=== PATIENT | male | born 1935 | race Caucasian/White ===

== ENCOUNTER 2018-02-07 00:24 | Inpatient (IN) | payer MEDICARE, BC ==
[~2018-02-07] VITALS: Ht 168.9 cm; Wt 73.0 kg
[2018-02-07] VITALS (18 sets, daily range): BP systolic 133–174; BP diastolic 61–126; PULSE 53–78; RESP 16–22; TEMP 97.1–98.2; O2SAT 95–99
[2018-02-07] MEDS ORDERED: VENTAER INH (00:34)
[2018-02-07] MEDS ORDERED: ASPI81TA81 (00:34)
[2018-02-07] MEDS ORDERED: METF500T PO (00:37)
[2018-02-07] MEDS ORDERED: ROSU10 PO (00:37)
[2018-02-07] MEDS ORDERED: FLUT1SPR5 (00:37)
[2018-02-07] MEDS ORDERED: TRAZ100T10 PO (00:37)
[2018-02-07] MEDS ORDERED: PRIL20TA2 (00:37)
[2018-02-07] MEDS ORDERED: TAMS0.4C4 (00:37)
[2018-02-07] MEDS ORDERED: COLA100C5 PO (00:37)
[2018-02-07] MEDS ORDERED: NITR0.4D T-DERMAL (00:37)
[2018-02-07] MEDS ORDERED: NITROGLYCERIN-D5W 50 MG/250 ML 250 ML IV PRN (00:45)
[2018-02-07] MEDS ORDERED: NITROGLYCERIN 0.4 MG SL 25 TABS/BTL SL ONE (00:45)
--- NOTE | 2018-02-07 00:54 | PD ---
HPI Chief Complaint: Chest Pain Time Seen by Provider: 00:37 Travel History International Travel<30 days: No Contact w/Intl Traveler<30days: No History of Present Illness HPI The patient is an 82 year old male who presents to the [facility] emergency department with a history of chest pain that he reports woke him from sound sleep approximately 30 minutes prior to arrival in the emergency department. He reports that the pain is in both sides of the chest. He reports that the pain is an aching sensation that is been constant and 10 out of 10 in severity initially. The patient initially had shortness of breath and nausea dizziness according to ambulance services. The shortness of breath, dizziness, and nausea have resolved upon his arrival after 3 sublingual nitroglycerin were administered. The patient also took 324 mg of aspirin p.o. prior to arrival. The patient reports that he continues to have a chest aching that is a 6 out of 10 in severity. He reports that the pain radiates into bilateral arms with an aching sensation on the posterior aspect, medial aspect of both upper arms above the elbow. He denies having any prior history of myocardial infarction or congestive heart failure, however he does report having a prior history of heart murmur and according to papers that he brought a history of aortic stenosis. The patient is visiting from [place]. On review of systems otherwise, he denies having any known recent fevers, cough or congestion, neck pain, abdominal pain, vomiting, diarrhea, urinary symptoms, or neurologic symptoms. COUNTS INCLUDE 234 BEDS AT THE [facility] Past Medical History Narrative Medical The patient's past medical history is significant for aortic stenosis, hyperlipidemia, diabetes mellitus, hypertension, COPD. High Cholesterol: Yes COPD: Yes Coronary Artery Disease: Yes Diabetes: Yes Patient Takes Glucophage: No Diminished Hearing: No Hypertension: Yes Past Surgical History Narrative Surgical The patient's past surgical history is significant for and hernia repair, sinus surgery. Social History Alcohol Use: Yes (occasional) Tobacco Use: No Substance Use: No Allergies-Medications (Allergen,Severity, Reaction): Coded Allergies: No Known Allergies (Unverified , 02/07/18) Reported Meds & Prescriptions Reported Meds & Active Scripts Active Reported Trazodone (Trazodone HCl) 100 Mg Tablet 100 Mg PO HS Tamsulosin (Tamsulosin HCl) 0.4 Mg Cap 0.4 Mg HS Crestor (Rosuvastatin Calcium) 10 Mg Tab 10 Mg PO DAILY Prilosec (Omeprazole Magnesium) 20 Mg Tab Metformin (Metformin HCl) 500 Mg Tab 500 Mg PO BIDPC Nitro-Dur Patch 24 HR (Nitroglycerin) 0.4 Mg/Hr Patch 0.4 Mg T-DERMAL DAILY Flonase Allergy Relief (Fluticasone Propionate) 50 Mcg/Actuation [place].susp Colace (Docusate Sodium) 100 Mg Capsule 200 Mg PO BID Ventolin Hfa 18 GM Inh (Albuterol Sulfate) 90 Mcg/Act Aer 2 Puff INH Q4-6H PRN Aspir-81 (Aspirin) 81 Mg Tabdr Review of Systems Except as stated in HPI: all other systems reviewed are Neg General / Constitutional: No: Fever Eyes: No: Visual changes HENT: No: Headaches Cardiovascular: Positive: Chest Pain or Discomfort, Dyspnea on exertion Respiratory: Positive: Shortness of Breath Gastrointestinal: Positive: Nausea, No: Abdominal Pain Genitourinary: No: Dysuria Musculoskeletal: No: Pain Skin: No Rash Neurologic: Positive: Dizziness, No: Weakness, Focal Abnormalities, Change in Mentation, Slurred Speech, Sensory Disturbance Psychiatric: No: Depression Endocrine: No: Polydipsia Hematologic/Lymphatic: No: Easy Bruising Physical Exam Narrative General: The patient is a well-developed well-nourished male in no acute distress. Head and Neck exam: Head is normocephalic atraumatic. Eyes: EOMI, pupils are equal round and reactive to light. Nose: Midline septum with pink mucous membranes Mouth: Dentition unremarkable. Moist mucus membranes. Posterior oropharynx is not erythematous. No tonsillar hypertrophy. Uvula midline. Airway patent. Neck: No palpable lymphadenopathy. No nuchal rigidity. No thyromegaly. Cardiovascular: Regular rate and rhythm with 3/6 systolic murmur best audible at the second intercostal space on the right side anterior chest in a patient with a reported history of heart murmur, no gallops or rubs. No pulse deficit to the extremities on simultaneous auscultation and palpation of his radial artery. Lungs: Clear to auscultation bilaterally. No wheezes, rhonchi, or rales. Abdomen: Soft, without tenderness to palpation in all 4 quadrants of the abdomen. No guarding, rebound, or rigidity. Normal bowel sounds are audible. No tenderness on palpation of McBurney's point. Negative Negron sign peer Extremities: No clubbing, cyanosis, or edema. 2+ pulses in all 4 extremities. No calf tenderness on palpation peer Back: No spinous process tenderness to palpation. No costovertebral angle tenderness to palpation. Neurologic Exam: Grossly nonfocal. Skin Exam: No rash noted. Intact skin that is warm and dry. Data Data Last Documented VS Vital Signs Date Time Temp Pulse Resp B/P (MAP) Pulse Ox O2 Delivery O2 Flow Rate FiO2 02/07/18 03:09 53 16 146/66 (92) 98 Room Air 02/07/18 00:32 98.2 Orders Orders Electrocardiogram (02/07/18 00:37) Complete Blood Count With Diff (02/07/18 00:37) Comprehensive Metabolic Panel (02/07/18 00:37) Creatine Kinase (Cpk) (02/07/18 00:37) Ckmb (Isoenzyme) Profile (02/07/18 00:37) Troponin I (02/07/18 00:37) B-Type Natriuretic Peptide (02/07/18 00:37) Prothrombin Time / Inr (Pt) (02/07/18 00:37) Act Partial Throm Time (Ptt) (02/07/18 00:37) Lipase (02/07/18 00:37) Urinalysis - C+S If Indicated (02/07/18 00:37) Magnesium (Mg) (02/07/18 00:37) Chest, Single Ap (02/07/18 00:37) Iv Access Insert/Monitor (02/07/18 00:37) Ecg Monitoring (02/07/18 00:37) Oximetry (02/07/18 00:37) Nitroglycerin Sl (Nitrostat Sl) (02/07/18 00:45) Nitroglycerin-D5w 50 Mg/250 Ml (Nitrogly (02/07/18 00:45) Ct Pulmonary Angiogram (02/07/18 01:41) Iohexol 350 Inj (Omnipaque 350 Inj) (02/07/18 03:04) Admit Order (Ed Use Only) (02/07/18 03:29) Heparin Inj (Heparin Inj) (02/07/18 03:30) Heparin-D5w 25,000 U/250 Ml (Heparin-D5w (02/07/18 03:30) Act Partial Throm Time (Ptt) (02/07/18 03:29) Cbc No Diff, Includes Plts (02/07/18 03:29) Cbc No Diff, Includes Plts (02/10/18 06:00) Act Partial Throm Time (Ptt) (02/07/18 10:29) Occult Blood (Hemoccult) Stool (02/07/18 03:29) Labs Laboratory Tests Test 02/07/18 00:20 02/07/18 00:50 White Blood Count 13.0 TH/MM3 Red Blood Count 4.36 MIL/MM3 Hemoglobin 12.3 GM/DL Hematocrit 37.1 % Mean Corpuscular Volume 85.1 FL Mean Corpuscular Hemoglobin 28.2 PG Mean Corpuscular Hemoglobin Concent 33.1 % Red Cell Distribution Width 15.2 % Platelet Count 182 TH/MM3 Mean Platelet Volume 9.7 FL Neutrophils (%) (Auto) 30.8 % Lymphocytes (%) (Auto) 52.8 % Monocytes (%) (Auto) 10.7 % Eosinophils (%) (Auto) 5.0 % Basophils (%) (Auto) 0.7 % Neutrophils # (Auto) 4.0 TH/MM3 Lymphocytes # (Auto) 6.9 TH/MM3 Monocytes # (Auto) 1.4 TH/MM3 Eosinophils # (Auto) 0.6 TH/MM3 Basophils # (Auto) 0.1 TH/MM3 CBC Comment AUTO DIFF Differential Total Cells Counted 100 Neutrophils % (Manual) 32 % Lymphocytes % 52 % Monocytes % 9 % Eosinophils % 6 % Basophils % 1 % Neutrophils # (Manual) 4.2 TH/MM3 Differential Comment FINAL DIFF MANUAL Platelet Estimate NORMAL Platelet Morphology Comment NORMAL Red Cell Morphology Comment NORMAL Prothrombin Time 11.2 SEC Prothromb Time International Ratio 1.1 RATIO Activated Partial Thromboplast Time 23.3 SEC Blood Urea Nitrogen 23 MG/DL Creatinine 1.16 MG/DL Random Glucose 146 MG/DL Total Protein 7.0 GM/DL Albumin 3.6 GM/DL Calcium Level 9.4 MG/DL Magnesium Level 1.9 MG/DL Alkaline Phosphatase 85 U/L Aspartate Amino Transf (AST/SGOT) 18 U/L Alanine Aminotransferase (ALT/SGPT) 24 U/L Total Bilirubin 0.2 MG/DL Sodium Level 141 MEQ/L Potassium Level 4.3 MEQ/L Chloride Level 105 MEQ/L Carbon Dioxide Level 29.9 MEQ/L Anion Gap 6 MEQ/L Estimat Glomerular Filtration Rate 60 ML/MIN Total Creatine Kinase 88 U/L Troponin I 0.14 NG/ML B-Type Natriuretic Peptide 48 PG/ML Lipase 166 U/L Urine Color YELLOW Urine Turbidity CLEAR Urine pH 6.0 Urine Specific [place] 1.022 Urine Protein TRACE mg/dL Urine Glucose (UA) NEG mg/dL Urine Ketones NEG mg/dL Urine Occult Blood NEG Urine Nitrite NEG Urine Bilirubin NEG Urine Urobilinogen LESS THAN 2.0 MG/DL Urine Leukocyte Esterase NEG Urine RBC 1 /hpf Urine WBC 1 /hpf Urine Mucus FEW /lpf Microscopic Urinalysis Comment CULT NOT INDICATED MDM Medical Decision Making Medical Screen Exam Complete: Yes Emergency Medical Condition: Yes Medical Record Reviewed: Yes Interpretation(s) Last [address] Angiography 02/07/18 0141 Signed Impressions: Service Date/Time: Wednesday, February 07, 2018 03:04 - CONCLUSION: No pulmonary embolus or other acute abnormality. 5 mm right upper lobe pulmonary nodule, likely benign. Coronary artery calcification. Michoacano Rios MD Chest X-Ray 02/07/18 0037 Signed Impressions: Service Date/Time: Wednesday, February 07, 2018 01:04 - CONCLUSION: Mild bibasilar atelectasis. Michoacano Rios MD Differential Diagnosis Acute coronary syndrome, versus pulmonary embolism, versus aortic dissection Narrative Course During the course of the patient's emergency department visit, the patient's history, examination, and differential diagnosis were reviewed with the patient. The patient was placed on a monitor car operator with oximetry and frequent blood pressure monitoring. The patient had IV access obtained and blood work sent for analysis. The patient had an EKG done on arrival that shows a sinus bradycardia heart rate of 57, QRS duration 125 ms with a right bundle branch block noted, left anterior fascicular block noted. QTC [address] segment elevation is noted. T waves are inverted in V1. The patient took 324 mg of aspirin p.o. prior to arrival. The patient had already be given sublingual nitroglycerin 3 and continue to have chest pain. A nitroglycerin drip was started and titrated to chest pain. While this was being prepared another dose of sublingual nitroglycerin was administered. The patient's laboratory studies were reviewed and remarkable for a white count of 13, hemoglobin 12.3, platelets 182 with 52 lymphocytes, 9 monocytes, 6 eosinophils. CMP is remarkable for BUN of 23, glucose 146, CPK 88, troponin I 0.14, BNP is 48, lipase 166, PT PTT unremarkable, urinalysis within normal limits. Radiology studies were reviewed and remarkable for a chest x-ray that shows mild basilar atelectasis bilaterally. CTA to rule out PE shows no pulmonary embolism or other acute abnormality, 5 mm right upper lobe pulmonary nodule likely benign, coronary artery calcification. The patient reported improvement in his pain on the nitroglycerin drip. Due to a concern for this patient having a non-STEMI with elevated troponin the patient was started on heparin per [place] protocol. The patient's results were discussed with the patient, including the plan of care. I explained that further testing and/ or monitoring is indicated based on the patient's history, examination, and/ or laboratory findings. Therefore, I recommended admission for additional evaluation. The patient expressed understanding and was agreeable with this plan. The patient was admitted to the hospital in guarded condition and sent to a bed under the care of the [facility]. Physician Communication Physician Communication The patient's case including history, pertinent physical examination findings, and laboratory studies were discussed with Dr. Mullins. It was agreed that the patient would be admitted to the [facility] service. Diagnosis Primary Impression: Chest pain, rule out acute myocardial infarction Additional Impression: Elevated troponin Admitting Information Admitting Physician Requests: Admit Rosio Manzo MD Feb 07, 2018 00:54
[2018-02-07 01:05] LABS: BASOPHIL # 0.1 TH/MM3 (0-0.2); BASOPHIL % 0.7 % (0.0-2.0); EOSINOPHIL # 0.6 TH/MM3 (0-0.4); HEMATOCRIT 37.1 % (39.0-51.0); HEMOGLOBIN 12.3 GM/DL (13.0-17.0); LYMPH % 52.8 % (9.0-44.0); LYMPHOCYTE # 6.9 TH/MM3 (1.0-4.8); MEAN CELL VOLUME 85.1 FL (80.0-100.0); MEAN CORPUSCULAR HEMOGLOBIN 28.2 PG (27.0-34.0); MEAN CORPUSCULAR HGB CONC 33.1 % (32.0-36.0); MEAN PLATELET VOLUME 9.7 FL (7.0-11.0); MONO % 10.7 % (0.0-8.0); MONOCYTE # 1.4 TH/MM3 (0-0.9); NEUT % 30.8 % (16.0-70.0); PLATELET COUNT 182 TH/MM3 (150-450); RED BLOOD COUNT 4.36 MIL/MM3 (4.50-5.90); RED CELL DISTRIBUTION WIDTH 15.2 % (11.6-17.2)
[2018-02-07 01:20] LABS: INTERNATIONAL NORMALIZED RATIO 1.1 RATIO; PROTHROMBIN TIME - PATIENT 11.2 SEC (9.8-11.6)
--- NOTE | 2018-02-07 01:21 | RADRPT ---
EXAM DATE/TIME: 02/07/2018 01:04 [facility] COMPARISON: No previous studies available for comparison. INDICATIONS : Short of breath. MEDICAL HISTORY : None. SURGICAL HISTORY : None. ENCOUNTER: Initial ACUITY: 1 day PAIN SCORE: 0/10 LOCATION: Bilateral chest FINDINGS: There is mild bibasilar atelectasis. No pleural effusion. No pneumothorax. Normal cardiomediastinal silhouette. CONCLUSION: Mild bibasilar atelectasis. Michoacano Rios MD on February 07, 2018 at 1:19 Board Certified Radiologist. This report was verified electronically.
[2018-02-07 01:22] LABS: BILIRUBIN, URINE NEG (NEG); BLOOD, URINE NEG (NEG); GLUCOSE,URINE NEG (NEG); KETONE, URINE NEG (NEG); MUCUS URINE FEW /lpf (OCC); NITRITE,URINE NEG (NEG); URINE COLOR YELLOW (YELLW/STRAW); URINE LEUKOCYTE ESTERASE NEG (NEG)
[2018-02-07 01:31] LABS: ALBUMIN 3.6 GM/DL (3.4-5.0); ALT (GPT) 24 U/L (12-78); AST (GOT) 18 U/L (15-37); BICARBONATE 29.9 MEQ/L (21.0-32.0); BLOOD UREA NITROGEN 23 MG/DL (7-18); CALCIUM 9.4 MG/DL (8.5-10.1); CHLORIDE 105 MEQ/L (98-107); CREATININE 1.16 MG/DL (0.60-1.30); GLOMERULAR FILTRATION RATE 60 ML/MIN (>89); GLUCOSE,RANDOM 146 MG/DL (74-106); MAGNESIUM 1.9 MG/DL (1.5-2.5); SODIUM (NA) 141 MEQ/L (136-145)
[2018-02-07 01:32] LABS: ALKALINE PHOSPHATASE 85 U/L (45-117); TOTAL BILIRUBIN ADULT 0.2 MG/DL (0.2-1.0); TROPONIN I 0.14 NG/ML (0.02-0.05)
[2018-02-07 02:21] LABS: BASOPHILS 1 % (0-2); LYMPHOCYTES 52 % (9-44); MONOCYTES 9 % (0-8); NEUTROPHIL # MANUAL DIFF 4.2 TH/MM3 (1.8-7.7); POLYS (SEG NEUTROPHILS) 32 % (16-70)
[2018-02-07] MEDS ORDERED: IOHEXOL 350 MG/ML 10 ML VIAL (for RAD DIAG) IVCONTRAST ONE (03:04)
[2018-02-07] MEDS ORDERED: HEPARIN SODIUM - IV 10,000 UNITS/10 ML VIAL IV ONE (03:30)
[2018-02-07] MEDS ORDERED: HEPARIN-D5W 25,000 U/250 ML 250 ML IV PRN (03:30)
--- NOTE | 2018-02-07 03:47 | RADRPT ---
EXAM DATE/TIME: 02/07/2018 03:04 [facility] COMPARISON: No previous studies available for comparison. INDICATIONS : Chest pain. IV CONTRAST: 75 cc Omnipaque 350 (iohexol) IV RADIATION DOSE: 9.25 CTDIvol (mGy) MEDICAL HISTORY : Hypertension. Chronic obstructive pulmonary disease. Diabetes mellitus type 2. SURGICAL HISTORY : None. ENCOUNTER: Initial ACUITY: 1 day PAIN SCALE: 4/10 LOCATION: Bilateral chest TECHNIQUE: Volumetric scanning of the chest was performed using a pulmonary embolism protocol MIP images were re constructed. Using automated exposure control and adjustment of the mA and/or kV according to patien t size, radiation dose was kept as low as reasonably achievable to obtain optimal diagnostic quality images. DICOM format image data is available electronically for review and comparison. Follow-up recommendations for detected pulmonary nodules are based at a minimum on nodule size and pa tient risk factors according to Fleischner Society Guidelines. FINDINGS: PULMONARY ARTERIES: No filling defects are seen in the pulmonary arteries through the segmental level. LUNGS: There is no consolidation or pneumothorax . 5 mm right upper lobe pulmonary nodule. PLEURAE: There is no pleural thickening or pleural effusion. MEDIASTINUM: There is good visualization of the great vessels of the middle mediastinum. No evidence of mediastin al or hilar adenopathy/mass. There is coronary calcification. MUSCULOSKELETAL: Within normal limits for patient age. MISCELLANEOUS: The visualized upper abdominal organs demonstrate no acute abnormality. Eventration noted of the righ t hemidiaphragm. CONCLUSION: No pulmonary embolus or other acute abnormality. 5 mm right upper lobe pulmonary nodule, likely benig n. Coronary artery calcification. Michoacano Rios MD on February 07, 2018 at 3:44 Board Certified Radiologist. This report was verified electronically.
[2018-02-07 03:58] LABS: HEMATOCRIT 33.1 % (39.0-51.0); MEAN CELL VOLUME 85.6 FL (80.0-100.0); MEAN CORPUSCULAR HEMOGLOBIN 28.6 PG (27.0-34.0); MEAN CORPUSCULAR HGB CONC 33.4 % (32.0-36.0); MEAN PLATELET VOLUME 9.7 FL (7.0-11.0); PLATELET COUNT 153 TH/MM3 (150-450); RED BLOOD COUNT 3.86 MIL/MM3 (4.50-5.90); RED CELL DISTRIBUTION WIDTH 15.5 % (11.6-17.2); WHITE BLOOD COUNT 10.2 TH/MM3 (4.0-11.0)
[2018-02-07] MEDS ORDERED: BISACODYL 10 MG SUPP RECTAL PRN (04:15)
[2018-02-07] MEDS ORDERED: LACTULOSE SYRUP 20 GM/30 ML CUP PO PRN (04:15)
[2018-02-07] MEDS ORDERED: RESP: ALBUTEROL 2.5 MG/IPRATROPIUM 0.5 MG NEB (PRN) NEB (04:15)
[2018-02-07] MEDS ORDERED: GLUCAGON 1 MG/ML VIAL OTHER PRN (04:15)
[2018-02-07] MEDS ORDERED: NALOXONE HCL 0.4 MG/ML AMP IV PUSH PRN (04:15)
[2018-02-07] MEDS ORDERED: SENNOSIDES 8.6 MG TAB PO PRN (04:15)
[2018-02-07] MEDS ORDERED: ACETAMINOPHEN 325 MG TAB PO PRN (04:15)
[2018-02-07] MEDS ORDERED: MAGNESIUM HYDROXIDE SUSP 30 ML CUP PO PRN (04:15)
[2018-02-07] MEDS ORDERED: DEXTROSE 50% IN WATER 50 ML VIAL(D50) IV PUSH PRN (04:15)
[2018-02-07] MEDS ORDERED: SODIUM CHLORIDE 0.9% FLUSH 10 ML FLUSH IV FLUSH PRN (04:15)
[2018-02-07 05:13] LABS: TROPONIN I 0.14 NG/ML (0.02-0.05)
[2018-02-07] MEDS: INSULIN ASPART SUPPLEMENTAL SCALE SQ SCH ×4 (08:00→21:53)
[2018-02-07] MEDS: SODIUM CHLORIDE 0.9% FLUSH 10 ML FLUSH IV FLUSH SCH ×2 (08:13→21:01)
--- NOTE | 2018-02-07 08:55 | HHI.HP ---
[facility]Staff Admission Diagnosis ACS Diagnoses: (1) NSTEMI (non-ST elevation myocardial infarction) (2) Chest pain (3) Elevated troponin I level (4) Hypertension (5) Diabetes mellitus (6) COPD (chronic obstructive pulmonary disease) (7) Hyperlipidemia (8) GERD (gastroesophageal reflux disease) (9) Aortic stenosis Chief Complaint: Chest pain Travel History International Travel<30 Days: No Contact w/Intl Traveler <30 Da: No History of Present Illness The patient is an 82-year-old male visiting the area from [place]. He reported chest pain that woke him from sleep early this morning. The pain was located over his entire chest and felt "achy". It lasted until he arrived at the hospital and received medication. It radiated to the backs of both arms. He denies any associated dyspnea or diaphoresis. Pain was initially 10/10. Currently no pain. He denies history of coronary artery disease, but does have reported history of hypertension, hyperlipidemia, and aortic stenosis. Review of Systems Constitutional: COMPLAINS OF: Dizziness, DENIES: Fever, Chills, Night Sweats Eyes: DENIES: Blurred vision, Vision loss Ears, nose, mouth, throat: DENIES: Hearing loss Respiratory: DENIES: Cough, Wheezing, Sputum production, Shortness of breath Cardiovascular: COMPLAINS OF: Chest pain, DENIES: Palpitations, Dyspnea on Exertion, Lower Extremity Edema Gastrointestinal: DENIES: Abdominal pain, Constipation, Diarrhea, Nausea, Vomiting Genitourinary: DENIES: Urinary frequency, Urinary incontinence, Urgency, Hematuria, Dysuria, Nocturia Musculoskeletal: DENIES: Joint pain, Muscle aches Integumentary: DENIES: Pruritus, Rash Hematologic/lymphatic: DENIES: Bruising Neurologic: DENIES: Headache Past Family Social History Past Medical History Hyperlipidemia Hypertension Diabetes mellitus Aortic stenosis GERD COPD Past Surgical History Right inguinal hernia repair Sinus surgery Tonsillectomy Reported Medications Trazodone (Trazodone HCl) 100 Mg Tablet 100 Mg PO HS Tamsulosin (Tamsulosin HCl) 0.4 Mg Cap 0.4 Mg HS Crestor (Rosuvastatin Calcium) 10 Mg Tab 10 Mg PO DAILY Prilosec (Omeprazole Magnesium) 20 Mg Tab Metformin (Metformin HCl) 500 Mg Tab 500 Mg PO BIDPC Nitro-Dur Patch 24 HR (Nitroglycerin) 0.4 Mg/Hr Patch 0.4 Mg T-DERMAL DAILY Flonase Allergy Relief (Fluticasone Propionate) 50 Mcg/Actuation [place].susp Colace (Docusate Sodium) 100 Mg Capsule 200 Mg PO BID Ventolin Hfa 18 GM Inh (Albuterol Sulfate) 90 Mcg/Act Aer 2 Puff INH Q4-6H PRN Aspir-81 (Aspirin) 81 Mg Tabdr Allergies: Coded Allergies: No Known Allergies (Unverified , 02/07/18) Family History Denies significant family medical history including heart disease. Social History Quit smoking more than 35 years ago. Occasional alcohol use. Denies illicit drug use. Physical Exam Vital Signs Vital Signs Date Time Temp Pulse Resp B/P (MAP) Pulse Ox O2 Delivery O2 Flow Rate FiO2 02/07/18 07:54 59 22 161/72 (101) 97 Nasal Cannula 2.00 02/07/18 06:13 67 16 133/61 (85) 98 Nasal Cannula 2.00 02/07/18 05:10 62 16 136/64 (88) 95 Nasal Cannula 2.00 02/07/18 04:33 67 18 146/84 (104) 95 Room Air 02/07/18 03:09 53 16 146/66 (92) 98 Room Air 02/07/18 01:29 66 158/60 02/07/18 01:05 98 Room Air 02/07/18 00:32 98.2 64 16 170/126 (141) 98 Room Air 02/07/18 00:27 58 16 98 Physical Exam GENERAL: Elderly male in no acute distress. HEENT: Normocephalic, atraumatic. Pupils equal, round and reactive. Extraocular movements intact. No scleral icterus. No injection or drainage. Oropharynx is clear. Mucous membranes are moist. CARDIOVASCULAR: Regular rate and rhythm with 2/6 aortic stenosis murmur. RESPIRATORY: Clear to auscultation. No wheezes, rales, or rhonchi. Breathing is non-labored. GASTROINTESTINAL: Abdomen soft, non-tender, nondistended. EXTREMITIES: No lower extremity edema. No calf tenderness. PSYCH: Alert and oriented x 3. Laboratory Laboratory Tests Test 02/07/18 00:20 02/07/18 00:50 02/07/18 03:40 02/07/18 04:30 White Blood Count 13.0 10.2 Red Blood Count 4.36 3.86 Hemoglobin 12.3 11.0 Hematocrit 37.1 33.1 Mean Corpuscular Volume 85.1 85.6 Mean Corpuscular Hemoglobin 28.2 28.6 Mean Corpuscular Hemoglobin Concent 33.1 33.4 Red Cell Distribution Width 15.2 15.5 Platelet Count 182 153 Mean Platelet Volume 9.7 9.7 Neutrophils (%) (Auto) 30.8 Lymphocytes (%) (Auto) 52.8 Monocytes (%) (Auto) 10.7 Eosinophils (%) (Auto) 5.0 Basophils (%) (Auto) 0.7 Neutrophils # (Auto) 4.0 Lymphocytes # (Auto) 6.9 Monocytes # (Auto) 1.4 Eosinophils # (Auto) 0.6 Basophils # (Auto) 0.1 CBC Comment AUTO DIFF Differential Total Cells Counted 100 Neutrophils % (Manual) 32 Lymphocytes % 52 Monocytes % 9 Eosinophils % 6 Basophils % 1 Neutrophils # (Manual) 4.2 Differential Comment FINAL DIFF MANUAL Platelet Estimate NORMAL Platelet Morphology Comment NORMAL Red Cell Morphology Comment NORMAL Prothrombin Time 11.2 Prothromb Time International Ratio 1.1 Activated Partial Thromboplast Time 23.3 23.6 Blood Urea Nitrogen 23 Creatinine 1.16 Random Glucose 146 Total Protein 7.0 Albumin 3.6 Calcium Level 9.4 Magnesium Level 1.9 Alkaline Phosphatase 85 Aspartate Amino Transf (AST/SGOT) 18 Alanine Aminotransferase (ALT/SGPT) 24 Total Bilirubin 0.2 Sodium Level 141 Potassium Level 4.3 Chloride Level 105 Carbon Dioxide Level 29.9 Anion Gap 6 Estimat Glomerular Filtration Rate 60 Total Creatine Kinase 88 64 Troponin I 0.14 0.14 B-Type Natriuretic Peptide 48 Lipase 166 Urine Color YELLOW Urine Turbidity CLEAR Urine pH 6.0 Urine Specific [place] 1.022 Urine Protein TRACE Urine Glucose (UA) NEG Urine Ketones NEG Urine Occult Blood NEG Urine Nitrite NEG Urine Bilirubin NEG Urine Urobilinogen LESS THAN 2.0 Urine Leukocyte Esterase NEG Urine RBC 1 Urine WBC 1 Urine Mucus FEW Microscopic Urinalysis Comment CULT NOT INDICATED Result Diagram: 02/07/18 0340 02/07/18 [address] Angiography 02/07/18 0141 Signed Impressions: Service Date/Time: Wednesday, February 07, 2018 03:04 - CONCLUSION: No pulmonary embolus or other acute abnormality. 5 mm right upper lobe pulmonary nodule, likely benign. Coronary artery calcification. Michoacano Rios MD Chest X-Ray 02/07/18 0037 Signed Impressions: Service Date/Time: Wednesday, February 07, 2018 01:04 - CONCLUSION: Mild bibasilar atelectasis. Michoacano Rios MD Caprini VTE Risk Assessment Caprini VTE Risk Assessment: Mod/High Risk (score >= 2) Caprini Risk Assessment Model Point Value = 1 Point Value = 2 Point Value = 3 Point Value = 5 Age 41-60 Minor surgery BMI > 25 kg/m2 Swollen legs Varicose veins or History of unexplained or recurrent spontaneous Oral contraceptives or hormone replacement Sepsis (< 1 month) Serious lung disease, including pneumonia (< 1 month) Abnormal pulmonary function Acute myocardial infarction Congestive heart failure (< 1 month) History of inflammatory bowel disease Medical patient at bed rest Age 61-74 Arthroscopic surgery Major open surgery (> 45 min) Laparoscopic surgery (> 45 min) Malignancy Confined to bed (> 72 hours) Immobilizing plaster cast Central venous access Age >= 75 History of VTE Family history of VTE Factor V Leiden Prothrombin [id number] Lupus anticoagulant Anticardiolipin antibodies Elevated serum homocysteine Heparin-induced thrombocytopenia Other congenital or acquired thrombophilia Stroke (< 1 month) Elective arthroplasty Hip, pelvis, or leg fracture Acute spinal cord injury (< 1 month) Prophylaxis Regimen Total Risk Factor Score Risk Level Prophylaxis Regimen 0-1 Low Early ambulation 2 Moderate Order ONE of the following: *Sequential Compression Device (SCD) *Heparin 5000 units SQ BID 3-4 Higher Order ONE of the following medications: *Heparin 5000 units SQ TID *Enoxaparin/Lovenox 40 mg SQ daily (WT < 150 kg, CrCl > 30 mL/min) *Enoxaparin/Lovenox 30 mg SQ daily (WT < 150 kg, CrCl > 10-29 mL/min) *Enoxaparin/Lovenox 30 mg SQ BID (WT < 150 kg, CrCl > 30 mL/min) AND/OR *Sequential Compression Device (SCD) 5 or more Highest Order ONE of the following medications: *Heparin 5000 units SQ TID (Preferred with Epidurals) *Enoxaparin/Lovenox 40 mg SQ daily (WT < 150 kg, CrCl > 30 mL/min) *Enoxaparin/Lovenox 30 mg SQ daily (WT < 150 kg, CrCl > 10-29 mL/min) *Enoxaparin/Lovenox 30 mg SQ BID (WT < 150 kg, CrCl > 30 mL/min) AND *Sequential Compression Device (SCD) Assessment and Plan Assessment and Plan 1. Non-ST elevation VA: Patient presented with chest pain. Troponin is mildly elevated. EKG shows sinus rhythm with right bundle branch block. Consult cardiology. Monitor on telemetry. Patient is currently on nitroglycerin drip and heparin drip. No chest pain currently. Keep n.p.o. for possible cardiac catheterization. Continue aspirin. 2. Hypertension: Blood pressure has been elevated this morning. Resume home blood pressure medications. 3. Hyperlipidemia: Continue statin. 4. GERD: Continue PPI. 5. COPD: Not in exacerbation. Albuterol nebulizer as needed. 6. Diabetes mellitus: Hold metformin. Monitor Accu-Cheks and cover with sliding scale insulin. 7. Aortic stenosis: Patient's primary care physician ordered a repeat echocardiogram to be done upon his return to [place]. 8. DVT prophylaxis: Heparin drip. Jose A Rosales MD Feb 07, 2018 08:55
[2018-02-07] MEDS ORDERED: RESP: ALBUTEROL 2.5 MG/3 ML NEB (PRN) NEB (09:00)
[2018-02-07] MEDS ORDERED: ATORVASTATIN 20 MG TAB PO SCH (09:00)
[2018-02-07] MEDS: DOCUSATE SODIUM 50 MG/SENNA 8.6 MG TAB PO SCH ×2 (09:25→21:01)
[2018-02-07] MEDS: PANTOPRAZOLE SOD 40 MG DELAYED RELEASE TAB PO SCH (10:34)
--- NOTE | 2018-02-07 11:28 | EKG ---
Date Performed: 02/07/2018 Time Performed: 10:44:58 PTAGE: 82 years EKG: Sinus rhythm WITH FIRST DEGREE AV BLOCK RIGHT BUNDLE BRANCH BLOCK LEFT ANTERIOR FASCICULAR BLOCK MINIMAL VOLTAGE CRITERIA FOR LVH, CONSIDER NORMAL VARIANT ABNORMAL ECG Since the PREVIOUS TRACING , no significant change noted DOCTOR: Honey Burciaga Interpretating Date/Time 02/07/2018 11:26:42
[2018-02-07 11:29] LABS: TROPONIN I 0.09 NG/ML (0.02-0.05)
--- NOTE | 2018-02-07 12:14 | EKG ---
Date Performed: 02/07/2018 Time Performed: 04:24:13 PTAGE: 82 years EKG: Sinus rhythm WITH SINUS ARRHYTHMIA WITH FIRST DEGREE AV BLOCK RIGHT BUNDLE BRANCH BLOCK LEFT ANTERIOR FASCICULAR BLOCK ABNORMAL ECG PREVIOUS TRACING : 02/07/2018 00.33 Since the previous tracing, no significant change noted DOCTOR: Honey Burciaga Interpretating Date/Time 02/07/2018 12:13:35
[2018-02-07] MEDS ORDERED: HEPARIN-NS/PF FLUSH BAG 2,000 ML IV FLUSH ONE (14:47)
--- NOTE | 2018-02-07 14:50 | MB ---
cc: Honey Burciaga MD DATE: 02/07/2018 HISTORY OF PRESENT ILLNESS: Mr. Huerta is an 82-year-old white male visiting from [place] with a history of hypertension, aortic stenosis, COPD and diabetes mellitus. Last night he developed severe substernal chest ache radiating into both arms. This was improved after he arrived to the emergency room. There is no previous history of coronary artery disease. His troponin is mildly elevated. PAST MEDICAL HISTORY: Positive for dyslipidemia, hypertension, diabetes mellitus, aortic stenosis, gastroesophageal reflux disease, COPD, history of right inguinal hernia repair, sinus surgery, tonsillectomy. MEDICATIONS: Include: 1. Aspirin. 2. Ventolin. 3. Colace. 4. Flomax. 5. Nitro-Dur. 6. Metformin. 7. Prilosec. 8. Crestor. 9. Tamsulosin. 10. Trazodone. ALLERGIES: NONE. SOCIAL HISTORY: The patient quit smoking over 35 years ago. He drinks alcohol occasionally. He is accompanied is , accompanied by his . FAMILY HISTORY: Positive for heart disease in his father. REVIEW OF SYSTEMS: Otherwise negative. PHYSICAL EXAMINATION: VITAL SIGNS: Blood pressure 150/65, pulse 64 and regular. HEENT: Negative. NECK: 2+ carotid upstrokes, no bruits. LUNGS: Clear. HEART: Regular with a 2/6 systolic ejection murmur. No gallop. ABDOMEN: Soft, no bruits. EXTREMITIES: With no edema. 2+ distal pulses. NEUROLOGIC: Grossly nonfocal. LABORATORY DATA: EKG was reviewed and showed sinus bradycardia, left axis, left fascicular block and right bundle branch block. LABORATORY DATA: Hemoglobin 11.0, potassium 4.3, creatinine 1.2. Troponin 0.04, 0.04 and 0.09. BNP 48. CK 88, 64 and 63. AST and ALT normal. DIAGNOSES: 1. Non-ST elevation myocardial infarction. 2. Aortic stenosis. 3. Hypertension. 4. Dyslipidemia. 5. Chronic obstructive pulmonary disease. DISPOSITION: Mr. Huerta will undergo cardiac catheterization and coronary artery intervention if necessary. The patient and his understand the risks and benefits, and wish to proceed. We will continue aggressive modification of his cardiac risk factors. He will follow up with his physicians in [place] after discharge. MD CHAPITO Pardo , 01:57 PM , 02:48 PM MTDVj
[2018-02-07] MEDS ORDERED: LIDOCAINE HCL 1% PF 30 ML VIAL ONE (14:55)
[2018-02-07] MEDS ORDERED: MIDAZOLAM HCL 5 MG/5 ML VIAL ONE (14:57)
[2018-02-07] MEDS ORDERED: HEPARIN SODIUM - IV 10,000 UNITS/10 ML VIAL ONE (15:45)
[2018-02-07] MEDS ORDERED: MIDAZOLAM HCL 2 MG/2 ML VIAL ONE (16:11)
[2018-02-07] MEDS ORDERED: TICAGRELOR 90 MG TAB PO ONE (16:26)
--- NOTE | 2018-02-07 16:38 | CATHPROC ---
[employer] HIS Report Study Information Study Number Admission Scheduled Start Study Start [id number] Feb 07 2018 3:32AM 02/07/2018 Feb 07 2018 2:28PM [place] Service Cardiac Catheterization Admit Source Facility Department Emergency department [facility] [place] [facility] Physician and Clinical Staff Initial Honey Hopper Slip Operator Nabila Damon,NATHANAEL Slip Operator Marissa Sharif,NATHANAEL Recorder Olinda Moreland ,RT(R) Scrub Lamberto Spence,RT(R) Scrub Angel Luis Chung,RT(R) Procedures Performed Procedure Location (Site) Vessel Name Angiogram LV LV Ventricle Coronary Angiograms LCA Left Coronary Coronary Angiograms RCA Right Coronary Drug Eluting Inflatio OM1 Mid CIRC L Heart Cath PTCA OM1 Mid CIRC Wire insertion Fem Art (right) Femoral Art Equipment Time Publicist Description Size Mfg Part Number Used/Scraped WIRE, BALANCE MIDDLEWEIGHT [id number] 15:49 [employer] 190CM Used 190CM *[id number] TRANSDUCER, TRUWAVE [id number] 14:33 ARANA STILES * Used W[facility] *[id number] 15:01 Yesmywine SCIENTIFIC AR MOD CATHETER FR 5 [id number] Used [id number] *[id number] *[id number] 16:15 DAIG/ST. EMIL MEDICAL ANGIOSEAL, FR6 VIP FR 6 Used *[id number] 14:33 MEDLINE [employer] PACK, CCL CUSTOM * Used *[id number] 14:33 ExtraFootie PACER PEN, SKIN DUAL W/ RULER * Used *[id number] 15:58 MEDTRONIC BALLOON, 2.5 X 10MM EUPHORA 10MM Used *[id number] 15:01 MEDTRONIC JL 4.0 DXTERITY CATHETER FR 5 Used *[id number] PIG ANG 145 DXTERITY [id number] 15:01 MEDTRONIC FR 5 Used CATHETER *[id number] 16:06 MEDTRONIC STENT, 3.0 12MM KATE 3.0 12MM Used *[id number] [id number] 16:01 [employer] 30 YVONNE INDEFLATOR Used *[id number] 15:49 Sling MEDICAL SHEATH, FR6.5 PRELUDE 11CM FR 6.5 038ACT Used *[id number] 14:33 [employer] WIRE, 3MMJ .035 180CM 180CM Used *[id number] PROBE COVER, STERILE [id number] 14:33 [employer] MEDICAL * Used ULTRASOUND W/ GEL *[id number] 14:33 NAMIC MANIFOLD, 4 PORT * Used *[id number] [id number] 15:23 NAMIC TUBING, HIGH PRESSURE 48" 48" Used *[id number] 14:33 NAMIC TUBING, HIGH PRESSURE 48" 48" Used *[id number] 14:33 NYCOMED OMNIPAQUE, 350 MG, 150ML 150ML [id number] Used [id number] 14:33 SILVA MEDICAL BLANKET,WARM AIR CCL * Used *[id number] 14:33 TERUMO MEDICAL SHEATH, FR5 TERUMO (10CM) FR 5 Used *[id number] Equipment Model, Serial, Lot Number and Expiration Data Description Model Number Serial Number Lot Number Expiration Date ANGIOSEAL, FR6 VIP [id number] 09-21-2018 AR MOD CATHETER [id number] 10-31-2019 JL 4.0 DXTERITY CATHETER [id number] 07-12-2020 PIG ANG 145 DXTERITY CATHETER [id number] 11-22-2019 STENT, 3.0 12MM KATE [id number] 08-29-2019 History: Current Medications Medication Dosage/Unit Route Frequency Last Date/Time Taken Statins (any) ASA History: Allergies Allergy Reaction No Known Allergies History: Risk Factors Family History of Hypertension Dyslipidemia Previous MN Previous Heart Failure Premature CAD Yes Yes No No No Prior Valve Prior PCI Prior CABG Surgery No No No Cerebrovascular Peripheral Artery Chronic Lung On Dialysis Diabetes Diabetes Therapy Disease Disease Disease No No No Yes Yes Oral History: Stress Tests Stress or Imaging Studies Performed No History: Other Current Smoker Method Quit No Cigarettes 35 Years Ago Labs Hgb (g/dl) Hct (%) WBC (l/cumm) Platelets (thousands) 11.60-17.00 35.00-51.00 4.00-11.00 150.00-450.00 11.0 33.1 10.2 153 Glucose (mg/dl) BUN (mg/dl) Creatinine (mg/dl) BUN:Creatinine (1:x) 74.00-106.00 7.00-18.00 0.50-1.30 10.00-20.00 146 23 1.2 19.2 Na (meq/l) K (meq/l) 136.00-145.00 3.50-5.10 141 4.3 INR (PTT:PT) 0.90-1.10 1.1 Troponin I (ng/ml) CPK (u/l) CPK-MB (ng/ML) 0.02-0.05 26.00-308.00 0.50-3.60 0.09 63 63.0 Medication Medication Total Dose (Bolus/Oral) Medication Total Dosage/Unit 1% XYLOCAINE 20 mL BRILLINTA 180 mg FENTANYL 100 mcg HEPARIN 5500 units NTG (IC) 300 mcg VERSED 8 mg Medications (Bolus/Oral) Medication Time Given Dosage/Unit Administered By Reason VERSED 02/07/2018 2:59:00 PM 2 mg Hesher, Nabila 2 mg VERSED given in lab by Nabila Damon RN via Peripheral IV. Ordered by Honey Burciaga. FENTANYL 02/07/2018 3:00:00 PM 50 mcg Josueher, Nabila 50 mcg FENTANYL given in lab by Nabila Damon RN via Peripheral IV. Ordered by Honey Burciaga. 1% XYLOCAINE 02/07/2018 3:18:48 PM 20 mL Honey Burciaga 20 mL 1% XYLOCAINE given in lab by Honey Burciaga in Right Groin via Subcutaneous. Ordered by Honey Casas. VERSED 02/07/2018 3:28:00 PM 2 mg Hesher, Nabila 2 mg VERSED given in lab by Nabila Damon RN via Peripheral IV. Ordered by Honey Burciaga. VERSED 02/07/2018 3:47:00 PM 2 mg Hesher, Nabila 2 mg VERSED given in lab by Nabila Damon RN via Peripheral IV. Ordered by Honey Burciaga. FENTANYL 02/07/2018 3:48:00 PM 50 mcg Hesher, Nabila 50 mcg FENTANYL given in lab by Nabila Damon RN via Peripheral IV. Ordered by Honey Burciaga. HEPARIN 02/07/2018 3:53:25 PM 5500 units Hes, Nabila 5500 units HEPARIN given in lab by Nabila Damon RN via Peripheral IV. Ordered by Honey Burciaga. NTG (IC) 02/07/2018 3:58:56 PM 100 mcg Lamberto Spence 100 mcg NTG (IC) given in lab by Lamberto Spence RT(R) via Intra-coronary. Ordered by Honey Burciaga. NTG (IC) 02/07/2018 4:03:22 PM 200 mcg Lamberto Spence 200 mcg NTG (IC) given in lab by Lamberto Spence RT(R) via Intra-coronary. Ordered by Honey Burciaga. VERSED 02/07/2018 4:12:00 PM 2 mg Cal Damonon 2 mg VERSED given in lab by Nabila Damon, RN via Peripheral IV. Ordered by Honey Burciaga. BRILLINTA 02/07/2018 4:27:00 PM 180 mg Nelson, Nabila 180 mg BRILLINTA given in lab by Nabila Damon, RN in Per mouth via Oral. Ordered by Honey Burciaga . Medication (Drip) Medication Time Given Dosage/Unit Concentration/Unit Diluent (ml) Solution HEPARIN DRIP STOPPED 02/07/2018 2:43:59 PM 0 units/hr 0 Patient arrived on 0 units/hr HEPARIN DRIP STOPPED given by Honey Burciaga via Peripheral IV. Pump/D rip Flow = 0 ml/hr using [Solution Name]. Ordered by Honey Burciaga. Discontinued at 02/07/2018 14:54. IV Solutions 02/07/2018 2:49:41 PM 50 mL (IV) NaCl .9 Patient arrived on IV Solutions via Peripheral IV. Pump/Drip Flow using NaCl .9. NITROGLYCERIN DRIP 02/07/2018 2:42:24 PM 5 mcg/min 50 mg 250 D5W Patient arrived on 5 mcg/min NITROGLYCERIN DRIP via Peripheral IV. Pump/Drip Flow = 1.5 ml/hr using D 5W with a concentration of 50 mg in 250 ml. NITROGLYCERN DRIP 02/07/2018 3:27:03 PM 0 units/hr 0 STOPPED 0 units/hr NITROGLYCERN DRIP STOPPED given in lab by Honey Burciaga. Pump/Drip Flow = 0 ml/hr using [Solution Name]. Ordered by Honey Burciaga. Initial Case Assessment Cardiovascular HR Rhythm NIBP Chest Pain 65 sr 173/87 0 Edema Present Skin color Skin None Normal Warm Dry Circulatory - Right Pulses Dorsalis Pedis Femoral 2 2 Scale (0,1,2,3,4,d) Circulatory - Left Pulses Dorsalis Pedis Femoral 2 2 Scale (0,1,2,3,4,d) Circulatory - Lower Extremities Color Lower Right Color Lower Left Normal Normal Neurological State Oriented to time-place- Alert Moves all extremities person Respiration - General Respiration Rate SpO2 (%) O2 (lpm) (B/min) 16 100 3 Final Case Assessment Cardiovascular HR Rhythm NIBP Chest Pain 65 sr 173/87 0 Edema Present Skin color Skin None Normal Warm Dry Circulatory - Right Pulses Dorsalis Pedis Femoral 2 2 Scale (0,1,2,3,4,d) Circulatory - Left Pulses Dorsalis Pedis Femoral 2 2 Scale (0,1,2,3,4,d) Circulatory - Lower Extremities Color Lower Right Color Lower Left Normal Normal Neurological State Oriented to time-place- Alert Moves all extremities person Respiration - General Respiration Rate SpO2 (%) O2 (lpm) (B/min) 16 100 3 Chronological Log Time Study Chronological Log 14:42:14 Patient arrived via Bed. 14:42:16 Patient Name, D.O.B, / Armband Verified By R.N. 14:42:18 Consent signed by the physician and the patient and verified by the [facility] staff. 14:42:19 Pre-op and post- op instructions given; patient acknowledges understanding of instructions. Patient arrived on 5 mcg/min NITROGLYCERIN DRIP via Peripheral IV. Pump/Drip Flow = 1.5 ml/hr u sing D5W with a 14:42:24 concentration of 50 mg in 250 ml. Patient arrived on 0 units/hr HEPARIN DRIP STOPPED given by Honey Burciaga via Peripheral IV. Pump/Drip Flow = 0 14:43:59 ml/hr using [Solution Name]. Ordered by Honey Burciaga. Discontinued at 02/07/2018 14:54. 14:49:23 Verbal Stimulation=2 Physical Stimulation=2 Airway=2 Respiration=2 TOTAL=8. (0=absent, 1=li mited, 2=present) 14:49:27 Patient has been NPO for More than 6Hrs. 14:49:28 Skin Breakdown- none per patient 14:49:36 Patient Warmer Placed on the Table. 14:49:38 Dania Prominences Protected 14:49:39 A # 18 IV was noted in the Antecubital (left). Grade = 0 14:49:40 A # 20 IV was noted in the Wrist (right). Grade = 0 14:49:41 Patient arrived on IV Solutions via Peripheral IV. Pump/Drip Flow using NaCl .9. 14:49:43 History and physical on the chart or being dictated. Assessment: Initial Case, HR=65 BPM, Rhythm=sr, QKGD=437/87 mmhg, Chest Pain=0, Edema=None, Col or=Normal, Skin = Warm, Dry Right Pulses: Zeke Ped=2, Femoral=2 Left Pulses: Zeke Ped=2, Femoral=2 14:49:44 Lower Right Extremities: Color=Normal Lower Left Extremities: Color=Normal Neurological: State=Alert, Ox3, TAMAYO Respiration: Resp=16 B/min, GtL4=719 %, O2=3 lpm Vitals capture started with the following parameters, Patient=Adult, Interval=5 min, Initial Pr ipugwq=473 mmHg, 14:49:47 Deflation Rate=5 mmHg, Cuff placed on Right Ankle 14:50:30 HR=60 bpm, CIEU=522/87 mmhg, SpO2=99.0 %, Resp=16 B/min, Cardenas=2 14:55:38 HR=65 bpm, ELAV=032/73 mmhg, SpO2=99.0 %, Resp=13 B/min, Cardenas=2 14:55:58 Reference ECG taken 14:59:00 2 mg VERSED given in lab by Nabila Damon, NATHANAEL via Peripheral IV. Ordered by Rubén Burciaga 15:00:00 50 mcg FENTANYL given in lab by Nabila Damon, NATHANAEL via Peripheral IV. Ordered by John Burciaga. 15:00:10 MD paged 15:00:30 HR=71 bpm, PHDF=178/80 mmhg, ToZ1=442.0 %, Resp=19 B/min, Cardenas=2 15:02:13 Pressure channel 2 zeroed. 15:05:34 HR=65 bpm, BCWX=603/73 mmhg, SpO2=94.0 %, Resp=9 B/min, Pain=0, Jolene=10, Cardenas=2 15:10:31 HR=60 bpm, SSTJ=676/69 mmhg, SpO2=93.0 %, Resp=12 B/min, Cardenas=2 15:13:26 MD arrived. 15:15:32 HR=59 bpm, IALK=076/67 mmhg, SpO2=93.0 %, Resp=13 B/min, Cardenas=2 Time Out. Correct patient, correct procedure, correct physician, power injector loaded with con trast with surgical team 15:17:42 present. Time Out Concurred by MD and individual staff in procedure. 15:18:01 Case Start 15:18:48 20 mL 1% XYLOCAINE given in lab by Honey Burciaga in Right Groin via Subcutaneous. Ordered by Honey Burciaga. 15:20:22 Access site was Right Femoral Artery. 15:20:29 HR=54 bpm, PBGS=628/71 mmhg, SpO2=95.0 %, Resp=25 B/min 15:20:29 A SHEATH, FR5 TERUMO (10CM) FR 5 was advanced into the Fem Art (right) using the Percutaneo us technique. A PIG ANG 145 DXTERITY CATHETER FR 5 was advanced over a wire. OMNIPAQUE, 350 MG, 150ML 150ML w as used 15:21:12 for injections. 15:23:54 The LV was injected at 10 cc/sec for a total of 30. OMNIPAQUE, 350 MG, 150ML 150ML used. Recorded Pressure: LV, HR=60, Condition=Condition 1 15:25:29 (Left Ventricle) LV 168/3/15 15:25:32 HR=59 bpm, OCLN=757/65 mmhg, SpO2=97.0 %, Resp=16 B/min, Cardenas=2 Recorded Pressure: LV, Ao, HR=63, Condition=Condition 1 15:25:46 (Left Ventricle) LV 171/4/18, (Aorta) Ao 144/51/91 15:26:34 Catheter was removed A JL 4.0 DXTERITY CATHETER FR 5 was advanced over a wire. OMNIPAQUE, 350 MG, 150ML 150ML was us ed for 15:26:36 injections. 0 units/hr NITROGLYCERN DRIP STOPPED given in lab by Honey Burciaga. Pump/Drip Flow = 0 ml/hr using [Solution 15:27:03 Name]. Ordered by Honey Burciaga. 15::29 The LCA was injected and visualized at various angles. OMNIPAQUE, 350 MG, 150ML 150ML used . Recorded Pressure: Ao, HR=66, Condition=Condition 1 15:27:38 (Aorta) Ao 160/68/106 15:28:00 2 mg VERSED given in lab by Nabila Damon, NATHANAEL via Peripheral IV. Ordered by Rubén Burciaga 15:30:31 HR=49 bpm, HWDP=183/62 mmhg, SpO2=97.0 %, Resp=28 B/min, Cardenas=2 15:32:35 Catheter was removed 15:32:37 A AR MOD CATHETER FR 5 was advanced over a wire. OMNIPAQUE, 350 MG, 150ML 150ML was used fo r injections. 15:34:10 The LCA was injected and visualized at various angles. OMNIPAQUE, 350 MG, 150ML 150ML used . 15:35:28 HR=61 bpm, NNBK=213/65 mmhg, SpO2=96.0 %, Resp=22 B/min, Cardenas=2 15:36:31 Catheter was removed A 3DRC INFINITI CATHETER FR 5 was advanced over a wire. OMNIPAQUE, 350 MG, 150ML 150ML was used for 15:36:33 injections. 15:36:38 The RCA was injected and visualized at various angles. OMNIPAQUE, 350 MG, 150ML 150ML used . 15:40:31 HR=66 bpm, EICV=481/69 mmhg, SpO2=95.0 %, Resp=12 B/min, Cardenas=2 15:45:30 HR=60 bpm, OGYZ=807/69 mmhg, SpO2=95.0 %, Resp=16 B/min, Cardenas=2 15:47:00 2 mg VERSED given in lab by Nabila Damon, NATHANAEL via Peripheral IV. Ordered by Rubén Burciaga 15:48:00 50 mcg FENTANYL given in lab by Nabila Damon, NATHANAEL via Peripheral IV. Ordered by John Burciaga 15:50:35 HR=59 bpm, XWJN=187/69 mmhg, SpO2=95.0 %, Resp=8 B/min, Cardenas=2 15:53:25 5500 units HEPARIN given in lab by Nabila Damon, RN via Peripheral IV. Ordered by Otakar. Patrica A XBC 3.5 GUIDE CATHETER FR 6 was advanced over a wire. OMNIPAQUE, 350 MG, 150ML 150ML was used for 15:54:41 injections. 15:55:34 HR=61 bpm, PALX=787/63 mmhg, SpO2=94.0 %, Resp=11 B/min, Cardenas=2 15:56:43 A WIRE, BALANCE MIDDLEWEIGHT 190CM 190CM was inserted via Fem Art (right). 15:56:52 Interventional wire has crossed the lesion A BALLOON, 2.5 X 10MM EUPHORA 10MM was inserted over WIRE, BALANCE MIDDLEWEIGHT 190CM 190CM via the 15:58:27 Fem Art (right). 15:58:56 100 mcg NTG (IC) given in lab by Lamberto Spence RT(R) via Intra-coronary. Ordered by Honey Casas. 16:00:31 HR=66 bpm, NIBP=97/50 mmhg, SpO2=95.0 %, Resp=12 B/min, Pain=0, Jolene=10, Cardenas=2 A BALLOON, 2.5 X 10MM EUPHORA 10MM over a WIRE, BALANCE MIDDLEWEIGHT 190CM 190CM in the OM1 Mid was 16:00:45 inflated using a 30 YVONNE INDEFLATOR at 14 yvonne for 30 sec. A BALLOON, 2.5 X 10MM EUPHORA 10MM over a WIRE, BALANCE MIDDLEWEIGHT 190CM 190CM in the OM1 Mid was 16:01:43 inflated using a 30 YVONNE INDEFLATOR at 14 yvonne for 26 sec. 16:02:32 Balloon Removed. 16:03:00 ACT (Normal Range 90-180) = 301 16:03:22 200 mcg NTG (IC) given in lab by Lamberto Spence RT(R) via Intra-coronary. Ordered by Honey Casas. 16:05:24 HR=75 bpm, MCTO=480/60 mmhg, SpO2=90.0 %, Resp=17 B/min, Pain=0, Jolene=10, Cardenas=2 A STENT, 3.0 12MM KATE 3.0 12MM was advanced through a XBC 3.5 GUIDE CATHETER FR 6 over a WIRE, BALANCE 16:06:29 MIDDLEWEIGHT 190CM 190CM. A STENT, 3.0 12MM KATE 3.0 12MM was deployed using a 30 YVONNE INDEFLATOR at 10 atmospheres for 47 seconds in 16:10:12 the OM1 Mid. 16:10:25 HR=73 bpm, SOSI=945/72 mmhg, SpO2=94.0 %, Resp=13 B/min, Pain=0, Jolene=10, Cardenas=2 16:11:07 Re-inflated the stent balloon in the OM1 Mid to 16 YVONNE for 32 seconds. 16:12:00 2 mg VERSED given in lab by Nbaila Damon RN via Peripheral IV. Ordered by Rubén Burciaga 16:12:08 Delivery device removed 16:13:02 Wire removed 16:14:24 Catheter was removed 16:14:46 An injection in the Fem Art (right) was made through the SHEATH, FR6.5 PRELUDE 11CM FR 6.5. 16:15:55 Case End 16:16:07 HR=61 bpm, KLZG=149/66 mmhg, SpO2=95.0 %, Resp=17 B/min, Pain=0, Jolene=10, Cardenas=2 Assessment: Final Case, HR=65 BPM, Rhythm=sr, XHJV=803/87 mmhg, Chest Pain=0, Edema=None, [place] r=Normal, Skin = Warm, Dry Right Pulses: Zeke Ped=2, Femoral=2 Left Pulses: Zeke Ped=2, Femoral=2 16:16:07 Lower Right Extremities: Color=Normal Lower Left Extremities: Color=Normal Neurological: State=Alert, Ox3, TAMAYO Respiration: Resp=16 B/min, VoF9=670 %, O2=3 lpm 16:16:13 Catheter(s) removed without difficulty 16:16:17 ANGIOSEAL, FR6 VIP FR 6 placement in the Fem Art (right) 16:16:22 Sterile dressing applied to site 16:16:38 No case complications noted. 16:16:39 Cine recording checked. 16:16:42 Bedside Report will be given. 16:16:44 Implantable Device card placed in patient's chart. 16:16:53 A Left Heart Cath was performed. 16:20:31 HR=63 bpm, UMPX=372/71 mmhg, SpO2=96.0 %, Resp=16 B/min, Pain=0, Jolene=10, Cardenas=2 16:25:26 HR=66 bpm, VDOU=523/72 mmhg, Resp=13 B/min, Pain=0, Jolene=10, Cardenas=2 16:27:00 180 mg BRILLINTA given in lab by Nabila Damon, NATHANAEL in Per mouth via Oral. Ordered by Honey Marroquin. 16:30:04 Vitals capture stopped. 16:32:13 Patient moved to stretcher End Study - Contrast Media Used In Study Contrast Total Opened (mL) Total Used (mL) Total Wasted (mL) Omnipaque 175 175 0 End Study - Maximum Contrast Load Max Contrast Load (mL) 308.3 End Study - Radiation Exposure Fluoro Time (minutes) 8.1 End Study - Sheaths Sheaths Pulled By Sheath Hold Time (min) Lamberto Spence End Study - Patient Disposition Complications Transferred To Interventional Outcome No Critical Care Bed successful
[2018-02-07] MEDS ORDERED: IOHEXOL 350 MG/ML 100 ML BTL (for Cath Lab) OTHER ONE (17:07)
--- NOTE | 2018-02-07 17:20 | MA ---
cc: Honey Burciaga MD DATE: 02/07/2018 INDICATIONS: Non-ST elevation myocardial infarction, class IV angina, diabetes mellitus. PROCEDURES PERFORMED: 1. Retrograde left heart catheterization with left ventriculography and selective coronary angiography. 2. Angioplasty and stenting of the first obtuse marginal artery of circumflex. 3. Moderate sedation. ACCESS SITE: Right femoral artery. EQUIPMENT USED: 5-Burkinan pigtail catheter, 5-Burkinan JL4 and 3DRC coronary catheters, a 6-Burkinan XB circumflex 3.5 guide, BMW wire, 2.5 x 10 mm balloon for predilatation, 3.0 x 12 mm Merigold stent at 16 atmospheres. MEDICATIONS: Versed IV, fentanyl IV, heparin IV. Brilinta 180 mg p.o. Nitroglycerin IC. Heparin IV. CONTRAST: Omnipaque 175 mL. COMPLICATIONS: None. ESTIMATED BLOOD LOSS: Less than 10 mL. METHOD OF HEMOSTASIS: Angio-Seal closure. RESULTS: A. HEMODYNAMICS: Heart rate 80 beats per minute. Left ventricular end-diastolic pressure 4 mmHg. Left ventricle 171/4. Aorta 151/68/106. B. LEFT VENTRICULOGRAPHY: Ejection fraction 55%. Wall motion normal. No mitral regurgitation. C. CORONARY ANGIOGRAPHY: Left main artery has 20% stenosis in the distal portion. Left anterior descending artery has a 60% focal stenosis in the proximal portion and 50% sequential stenosis at the ostium of the first and second diagonal branches. First diagonal artery is small and has 80% sequential stenosis at its ostium and in the proximal portion. Second diagonal artery is moderate size and patent. Ramus intermedius is a small to moderate-sized vessel with diffuse 80% proximal stenosis. Left circumflex artery is a large caliber vessel and gives off a very large first obtuse marginal artery which has 80% stenosis in the proximal portion. Right coronary artery is a dominant vessel with 50% stenosis in the mid-portion. PDA is patent and PLV is patent. D. INTERVENTION: Stenosis of the first obtuse marginal artery was 8 mm long, pre-NOEMI flow 3, post-NOEMI flow 3, post-stenosis 0. This was a type A lesion. Post-intervention angiography with excellent patency of the stented segment and no evidence of dissection, thrombosis, or distal embolization. DIAGNOSES: 1. Multivessel coronary artery disease with 80% stenosis of the large first obtuse marginal artery. 2. Overall preserved left ventricular systolic function. 3. Successful angioplasty and stenting of the first obtuse marginal artery. DISPOSITION: Mr. Huerta will be monitored on telemetry after his procedure. We will continue therapy with Brilinta for at least 1 year and aspirin indefinitely. We will titrate aggressive modification of his cardiac risk factors. He will follow up with his physicians in [place] after discharge. MD EJ Pardo/KASSANDRA , 04:36 PM , 05:19 PM RATNA
[2018-02-07] MEDS ORDERED: TAMSULOSIN HCL 0.4 MG CAP PO SCH (21:00)
[2018-02-07] MEDS ORDERED: traZODone HCL 100 MG TAB PO SCH (21:00)
--- NOTE | 2018-02-07 22:25 | EKG ---
Date Performed: 02/07/2018 Time Performed: 00:33:21 PTAGE: 82 years EKG: SINUS BRADYCARDIA RIGHT BUNDLE BRANCH BLOCK LEFT ANTERIOR FASCICULAR BLOCK ABNORMAL ECG NO PREVIOUS TRACING DOCTOR: Honey Burciaga Interpretating Date/Time 02/07/2018 22:23:36
[2018-02-07] MEDS ORDERED: MISC INFORMATION XX ONE (23:30)
[2018-02-08] VITALS (13 sets, daily range): BP systolic 153–159; BP diastolic 69–77; PULSE 61–113; RESP 18; TEMP 97.5–98.5; O2SAT 96–97
[2018-02-08 04:49] LABS: AUTOMATED NEUTROPHIL # 5.2 TH/MM3 (1.8-7.7); BASOPHIL # 0.1 TH/MM3 (0-0.2); BASOPHIL % 0.5 % (0.0-2.0); EOSINOPHIL # 0.6 TH/MM3 (0-0.4); EOSINOPHIL % 5.3 % (0.0-4.0); HEMATOCRIT 36.3 % (39.0-51.0); HEMOGLOBIN 11.8 GM/DL (13.0-17.0); LYMPH % 37.1 % (9.0-44.0); LYMPHOCYTE # 4.1 TH/MM3 (1.0-4.8); MEAN CELL VOLUME 85.2 FL (80.0-100.0); MEAN CORPUSCULAR HEMOGLOBIN 27.7 PG (27.0-34.0); MEAN CORPUSCULAR HGB CONC 32.5 % (32.0-36.0); MEAN PLATELET VOLUME 9.6 FL (7.0-11.0); MONO % 10.2 % (0.0-8.0); MONOCYTE # 1.1 TH/MM3 (0-0.9); NEUT % 46.9 % (16.0-70.0); PLATELET COUNT 166 TH/MM3 (150-450); RED BLOOD COUNT 4.26 MIL/MM3 (4.50-5.90); RED CELL DISTRIBUTION WIDTH 15.7 % (11.6-17.2); WHITE BLOOD COUNT 11.1 TH/MM3 (4.0-11.0)
[2018-02-08 05:11] LABS: BICARBONATE 23.9 MEQ/L (21.0-32.0); CALCIUM 9.2 MG/DL (8.5-10.1); CREATININE 0.95 MG/DL (0.60-1.30)
[2018-02-08 05:13] LABS: CHOLESTEROL/ HDL RATIO 4.22 RATIO; HDL CHOLESTEROL 42.4 MG/DL (40.0-60.0)
[2018-02-08] MEDS: INSULIN ASPART SUPPLEMENTAL SCALE SQ SCH (08:00)
[2018-02-08] MEDS ORDERED: BRIL90TA PO (08:07)
[2018-02-08] MEDS ORDERED: CARV3.125 PO (08:07)
[2018-02-08] MEDS ORDERED: ATOR80TA45 PO (08:18)
--- NOTE | 2018-02-08 08:22 | HHI.PR ---
Subjective Remarks Chest pain, coronary artery disease. States that he feels much better today. Denies chest pain or dyspnea. No lightheadedness, dizziness, nausea, vomiting. Objective Vitals Vital Signs Date Time Temp Pulse Resp B/P (MAP) Pulse Ox O2 Delivery O2 Flow Rate FiO2 02/08/18 08:00 83 02/08/18 07:23 98.5 76 18 159/77 (104) 96 02/08/18 07:00 79 02/08/18 06:16 106 02/08/18 05:06 78 02/08/18 04:32 71 02/08/18 04:31 97.9 91 157/71 (99) 96 02/08/18 03:16 113 02/08/18 02:16 66 02/08/18 01:15 61 02/08/18 00:10 97.5 62 153/69 (97) 97 02/08/18 00:00 75 02/07/18 23:00 78 02/07/18 22:00 61 02/07/18 20:00 57 02/07/18 19:00 57 02/07/18 19:00 97.1 57 147/68 (94) 98 02/07/18 18:43 98.0 61 18 157/75 (102) 98 02/07/18 18:05 61 02/07/18 16:45 92 Room Air 02/07/18 13:20 60 20 155/75 (101) 98 02/07/18 13:09 02/07/18 12:00 54 17 150/65 (93) 96 Nasal Cannula 2.00 02/07/18 10:00 54 17 161/72 (101) 98 Nasal Cannula 2.00 02/07/18 09:00 58 19 174/81 (112) 99 Nasal Cannula 2.00 I/O 02/07/18 02/07/18 02/07/18 02/08/18 02/08/18 02/08/18 07:00 15:00 23:00 07:00 15:00 23:00 Intake Total 240 ml Output Total 625 ml 400 ml 900 ml Balance -625 ml -400 ml -660 ml Intake Oral 240 ml Output Urine Total 625 ml 400 ml 900 ml # Voids 2 2 Result Diagram: 02/08/18 0425 02/08/18 [address] Angiography 02/07/18 0141 Signed Impressions: Service Date/Time: Wednesday, February 07, 2018 03:04 - CONCLUSION: No pulmonary embolus or other acute abnormality. 5 mm right upper lobe pulmonary nodule, likely benign. Coronary artery calcification. Michoacano Rios MD Chest X-Ray 02/07/18 0037 Signed Impressions: Service Date/Time: Wednesday, February 07, 2018 01:04 - CONCLUSION: Mild bibasilar atelectasis. Michoacano Rios MD Objective Remarks General: Elderly male in no acute distress. Heart: Regular rate and rhythm. No murmur. Lungs: Clear to auscultation bilaterally. No wheezes, rales, or rhonchi. Breathing is nonlabored. Abdomen: Soft, nontender, nondistended. Extremities: No lower extremity edema. Psych: Alert and oriented. Neuro: Normal speech. No focal deficits noted. Procedures 02/07/18 Cardiac catheterization Urinary Catheter: No Vascular Central Line Catheter: No A/P Problem List: (1) NSTEMI (non-ST elevation myocardial infarction) ICD Code: I21.4 - Non-ST elevation (NSTEMI) myocardial infarction (2) Chest pain ICD Code: R07.9 - Chest pain, unspecified (3) Elevated troponin I level ICD Code: R74.8 - Abnormal levels of other serum enzymes (4) Hypertension ICD Code: I10 - Essential (primary) hypertension (5) Diabetes mellitus ICD Code: E11.9 - Type 2 diabetes mellitus without complications (6) COPD (chronic obstructive pulmonary disease) ICD Code: J44.9 - Chronic obstructive pulmonary disease, unspecified (7) Hyperlipidemia ICD Code: E78.5 - Hyperlipidemia, unspecified (8) GERD (gastroesophageal reflux disease) ICD Code: K21.9 - Gastro-esophageal reflux disease without esophagitis (9) Aortic stenosis ICD Code: I35.0 - Nonrheumatic aortic (valve) stenosis Assessment and Plan 1. Non-ST elevation ID, CAD: Patient presented with chest pain. Appreciate cardiology recommendations. S/P catheterization, which showed multivessel CAD with 80% stenosis of the large first obtuse marginal artery. Stent was placed. Continue carvedilol, Brilinta, atorvastatin, aspirin. 2. Hypertension: Continue home blood pressure medications. Carvedilol added. 3. Hyperlipidemia: Continue statin. 4. GERD: Continue PPI. 5. COPD: Not in exacerbation. Albuterol nebulizer as needed. 6. Diabetes mellitus: Hold metformin. Monitor Accu-Cheks and cover with sliding scale insulin. 7. Aortic stenosis: Patient's primary care physician ordered a repeat echocardiogram to be done upon his return to [place]. 8. DVT prophylaxis: Aspirin, Brilinta. Ambulation. Discharge Planning Discharge home when cleared by cardiology, possibly today. Jose A Rosales MD Feb 08, 2018 08:22
--- NOTE | 2018-02-08 08:22 | HHI.DCPOC ---
Discharge Care Plan Diagnosis: (1) COPD (chronic obstructive pulmonary disease) (2) Diabetes mellitus (3) Aortic stenosis (4) Hyperlipidemia (5) GERD (gastroesophageal reflux disease) (6) Chest pain (7) Hypertension (8) NSTEMI (non-ST elevation myocardial infarction) (9) Elevated troponin I level Goals to Promote Your Health * To prevent worsening of your condition and complications * To maintain your health at the optimal level Directions to Meet Your Goals Take your medications as prescribed Follow your dietary instruction Follow activity as directed Keep your appointments as scheduled Take your immunizations and boosters as scheduled If your symptoms worsen call your PCP, if no PCP go to Urgent Care Center or Emergency Room Smoking is Dangerous to Your Health. Avoid second hand smoke Call the 24-hour hour crisis hotline for domestic abuse at Jose A Rosales MD Feb 08, 2018 08:22
[2018-02-08] MEDS: PANTOPRAZOLE SOD 40 MG DELAYED RELEASE TAB PO SCH (08:53)
[2018-02-08] MEDS: SODIUM CHLORIDE 0.9% FLUSH 10 ML FLUSH IV FLUSH SCH (08:54)
[2018-02-08] MEDS: DOCUSATE SODIUM 50 MG/SENNA 8.6 MG TAB PO SCH (08:54)
--- NOTE | 2018-02-08 08:58 | PD.CARD.PN ---
Subjective Subjective Remarks No CP or SOB, feels fine Objective Medications Current Medications Medications (Trade) Dose Ordered Sig/Demar Route Start Time Stop Time Status Last Admin Nitroglycerin/ Dextrose 250 ml @ 1.5 mls/hr TITRATE PRN IV 02/07/18 00:45 02/07/18 01:29 (D50w (Vial) Inj) 50 ml UNSCH PRN IV PUSH 02/07/18 04:15 (Glucagon Inj) 1 mg UNSCH PRN OTHER 02/07/18 04:15 (NovoLOG SUPPLEMENTAL SCALE) 1 ACHS SLIDING SCALE SQ 02/07/18 08:00 02/07/18 21:53 (Duoneb Neb) 1 ampule Q4HR NEB PRN NEB 02/07/18 04:15 (NS Flush) 2 ml UNSCH PRN IV FLUSH 02/07/18 04:15 (NS Flush) 2 ml BID IV FLUSH 02/07/18 09:00 02/07/18 21:01 (Tylenol) 650 mg Q4H PRN PO 02/07/18 04:15 (Narcan Inj) 0.4 mg UNSCH PRN IV PUSH 02/07/18 04:15 (Magda-Colace) 1 tab BID PO 02/07/18 09:00 02/07/18 21:01 (Milk Of Magnesia Liq) 30 ml Q12H PRN PO 02/07/18 04:15 (Senokot) 17.2 mg Q12H PRN PO 02/07/18 04:15 (Dulcolax Supp) 10 mg DAILY PRN RECTAL 02/07/18 04:15 (Lactulose Liq) 30 ml DAILY PRN PO 02/07/18 04:15 (Flomax) 0.4 mg HS PO 02/07/18 21:00 02/07/18 21:01 (Desyrel) 100 mg HS PO 02/07/18 21:00 02/07/18 21:01 (Albuterol Neb) 2.5 mg Q2HR NEB PRN NEB 02/07/18 09:00 (Protonix) 40 mg DAILY PO 02/07/18 09:00 02/07/18 10:34 (Pneumovax-23 Inj) 25 mcg ONCE ONCE IM 02/08/18 10:00 02/08/18 10:01 (Brilinta) 90 mg BID PO 02/08/18 09:00 (Coreg) 6.25 mg BID PO 02/08/18 09:00 (Ecotrin Ec) 81 mg DAILY PO 02/08/18 09:00 (Lipitor) 80 mg DAILY PO 02/08/18 09:00 Vital Signs / I&O Vital Signs Date Time Temp Pulse Resp B/P (MAP) Pulse Ox O2 Delivery O2 Flow Rate FiO2 02/08/18 08:00 83 02/08/18 07:23 98.5 76 18 159/77 (104) 96 02/08/18 07:00 79 02/08/18 06:16 106 02/08/18 05:06 78 02/08/18 04:32 71 02/08/18 04:31 97.9 91 157/71 (99) 96 02/08/18 03:16 113 02/08/18 02:16 66 02/08/18 01:15 61 02/08/18 00:10 97.5 62 153/69 (97) 97 02/08/18 00:00 75 02/07/18 23:00 78 02/07/18 22:00 61 02/07/18 20:00 57 02/07/18 19:00 57 02/07/18 19:00 97.1 57 147/68 (94) 98 02/07/18 18:43 98.0 61 18 157/75 (102) 98 02/07/18 18:05 61 02/07/18 16:45 92 Room Air 02/07/18 13:20 60 20 155/75 (101) 98 02/07/18 13:09 02/07/18 12:00 54 17 150/65 (93) 96 Nasal Cannula 2.00 02/07/18 10:00 54 17 161/72 (101) 98 Nasal Cannula 2.00 02/07/18 09:00 58 19 174/81 (112) 99 Nasal Cannula 2.00 I/O 02/07/18 02/07/18 02/07/18 02/08/18 02/08/18 02/08/18 07:00 15:00 23:00 07:00 15:00 23:00 Intake Total 240 ml Output Total 625 ml 400 ml 900 ml Balance -625 ml -400 ml -660 ml Intake Oral 240 ml Output Urine Total 625 ml 400 ml 900 ml # Voids 2 2 Physical Exam GENERAL: In NAD SKIN: Warm and dry. HEAD: Normocephalic. EYES: No scleral icterus. No injection or drainage. NECK: Supple, trachea midline. No JVD or lymphadenopathy. CARDIOVASCULAR: Regular rate and rhythm without murmurs, gallops, or rubs. RESPIRATORY: Breath sounds equal bilaterally. No accessory muscle use. GASTROINTESTINAL: Abdomen soft, non-tender, nondistended. MUSCULOSKELETAL: No cyanosis, or edema. Groin stable. Laboratory Laboratory Tests Test 02/07/18 10:40 02/07/18 21:48 02/08/18 04:25 Activated Partial Thromboplast Time 47.4 SEC 27.9 SEC Total Creatine Kinase 63 U/L 61 U/L Troponin I 0.09 NG/ML White Blood Count 11.1 TH/MM3 Red Blood Count 4.26 MIL/MM3 Hemoglobin 11.8 GM/DL Hematocrit 36.3 % Mean Corpuscular Volume 85.2 FL Mean Corpuscular Hemoglobin 27.7 PG Mean Corpuscular Hemoglobin Concent 32.5 % Red Cell Distribution Width 15.7 % Platelet Count 166 TH/MM3 Mean Platelet Volume 9.6 FL Neutrophils (%) (Auto) 46.9 % Lymphocytes (%) (Auto) 37.1 % Monocytes (%) (Auto) 10.2 % Eosinophils (%) (Auto) 5.3 % Basophils (%) (Auto) 0.5 % Neutrophils # (Auto) 5.2 TH/MM3 Lymphocytes # (Auto) 4.1 TH/MM3 Monocytes # (Auto) 1.1 TH/MM3 Eosinophils # (Auto) 0.6 TH/MM3 Basophils # (Auto) 0.1 TH/MM3 CBC Comment DIFF FINAL Differential Comment Blood Urea Nitrogen 16 MG/DL Creatinine 0.95 MG/DL Random Glucose 132 MG/DL Calcium Level 9.2 MG/DL Sodium Level 141 MEQ/L Potassium Level 3.9 MEQ/L Chloride Level 110 MEQ/L Carbon Dioxide Level 23.9 MEQ/L Anion Gap 7 MEQ/L Estimat Glomerular Filtration Rate 76 ML/MIN Triglycerides Level 78 MG/DL Cholesterol Level 179 MG/DL LDL Cholesterol 121 MG/DL HDL Cholesterol 42.4 MG/DL Cholesterol/HDL Ratio 4.22 RATIO Assessment and Plan Problem List: (1) NSTEMI (non-ST elevation myocardial infarction) ICD Codes: I21.4 - Non-ST elevation (NSTEMI) myocardial infarction (2) CAD (coronary artery disease) ICD Codes: I25.10 - Atherosclerotic heart disease of [place] coronary artery without angina pectoris (3) Stented coronary artery ICD Codes: Z95.5 - Presence of coronary angioplasty implant and graft (4) Aortic stenosis ICD Codes: I35.0 - Nonrheumatic aortic (valve) stenosis (5) Diabetes mellitus ICD Codes: E11.9 - Type 2 diabetes mellitus without complications (6) COPD (chronic obstructive pulmonary disease) ICD Codes: J44.9 - Chronic obstructive pulmonary disease, unspecified (7) Hypertension ICD Codes: I10 - Essential (primary) hypertension Assessment and Plan No recurrent angina. Good PCI result. Mild . Nl LV fx. Continue Brilinta for 1 year and baby ASA long-term, high dose atorvastatin, and beta rao. Groin benign. DC home. Will schedule outpt f/u before returning to [place]. Honey Burciaga MD Feb 08, 2018 08:58
[2018-02-08] MEDS ORDERED: ATORVASTATIN 80 MG TAB PO SCH (09:00)
[2018-02-08] MEDS ORDERED: TICAGRELOR 90 MG TAB PO SCH (09:00)
[2018-02-08] MEDS ORDERED: CARVEDILOL 3.125 MG TAB PO SCH (09:00)
[2018-02-08] MEDS ORDERED: ASPIRIN EC 325 MG TABEC PO SCH ×2 (09:00)
[2018-02-08] MEDS ORDERED: PNEUMOCOCCAL POLYVALENT INJ 25 MCG/0.5 ML SYR IM ONE (10:00)
--- NOTE | 2018-02-08 13:32 | EKG ---
Date Performed: 02/08/2018 Time Performed: 00:12:04 PTAGE: 82 years EKG: Sinus rhythm with borderline 1st degree A-V block Left axis deviation RBBB with left anterior fascicular block Ab normal ECG Since the PREVIOUS TRACING , no significant change noted PREVIOUS TRACIN02/07/2018 10.44 DOCTOR: Marshall Monk Interpretating Date/Time 02/08/2018 13:31:48
--- NOTE | 2018-02-08 13:32 | EKG ---
Date Performed: 02/08/2018 Time Performed: 07:30:20 PTAGE: 82 years EKG: Sinus rhythm with 1st degree A-V block Left axis deviation RBBB with left anterior fascicular block Abnormal ECG Since the PREVIOUS TRACING , no significant change noted PREVIOUS TRACIN02/08/2018 00.12 DOCTOR: Marshall Monk Interpretating Date/Time 02/08/2018 13:31:57
== END 2018-02-08 10:20 | disposition home or self-care (01) | DRG 247 ==
LOC: NEPE 00:24 → NEDA 03:32 → NEDH 08:20 → NEDA 13:08 → NEDH 14:44 → HCPC 18:00
PROVIDERS: ADMIT Family Medicine; ATTEND Family Medicine
PROC: 027034Z Dilation of Coronary Artery, One Artery with Drug-eluting Intraluminal Device, Percutaneous Approach (ICD-10-PCS; 2018-02-07)
PROC: B2111ZZ Fluoroscopy of Multiple Coronary Arteries using Low Osmolar Contrast (ICD-10-PCS; 2018-02-07)
PROC: B2151ZZ Fluoroscopy of Left Heart using Low Osmolar Contrast (ICD-10-PCS; 2018-02-07)
PROC: 4A023N7 Measurement of Cardiac Sampling and Pressure, Left Heart, Percutaneous Approach (ICD-10-PCS; principal; 2018-02-07 14:30)
DX: I21.4 Non-ST elevation (NSTEMI) myocardial infarction (principal); J44.9 Chronic obstructive pulmonary disease, unspecified; R00.1 Bradycardia, unspecified; I25.119 Atherosclerotic heart disease of native coronary artery with unspecified angina pectoris; E11.9 Type 2 diabetes mellitus without complications; I35.0 Nonrheumatic aortic (valve) stenosis; I10 Essential (primary) hypertension; E78.5 Hyperlipidemia, unspecified; E78.00 Pure hypercholesterolemia, unspecified; I44.69 Other fascicular block; I45.10 Unspecified right bundle-branch block; K21.9 Gastro-esophageal reflux disease without esophagitis; Z79.84 Long term (current) use of oral hypoglycemic drugs; Z79.82 Long term (current) use of aspirin; Z87.891 Personal history of nicotine dependence; Z82.49 Family history of ischemic heart disease and other diseases of the circulatory system; Z23 Encounter for immunization
CPT/HCPCS: 71045; 71275; 80048; 80053; 80061; 81001; 82550; 82948; 83690; 83735; 83880; 84484; 85002; 85007; 85025; 85027; 85610; 85730; 92928; 93005; 93458; 99152; 99153; C1725; C1760; C1769; C1874; C1887; C1893; G0269; J1644; J1815; J2250; J3010; Q9967